=== PATIENT | female | born 1995 | race African-American/Black ===

== ENCOUNTER 2020-01-01 10:56 | Emergency (ER) | payer OTHER ==
[~2020-01-01] VITALS: Ht 160 cm; Wt 73.6 kg
[2020-01-01 11:15] VITALS: BP 128/79
[2020-01-01 11:45] LABS: BILIRUBIN,URINE SMALL (NEG); COLOR,URINE AMBER; NITRITE,URINE NEGATIVE (NEG); PH,URINE 6.5 (<5.0-8.0); PROTEIN,URINE 30 mg/dL (NEG-TRACE)
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
[2020-01-01 11:54] LABS: CLARITY,URINE HAZY
[2020-01-01 12:01] LABS: BACTERIA,URINE FEW /HPF (0-FEW); SQUAMOUS EPITHELIAL CELL,UR MANY /LPF
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
== END 2020-01-01 13:33 | disposition home or self-care (01) ==
LOC: ER 10:56
DX: O26.891 Other specified pregnancy related conditions, first trimester (principal); G89.11 Acute pain due to trauma; R51 Headache; V49.9XXA Car occupant (driver) (passenger) injured in unspecified traffic accident, initial encounter; Y93.89 Activity, other specified; Y92.413 State road as the place of occurrence of the external cause; Y99.8 Other external cause status; Z3A.11 11 weeks gestation of pregnancy
CPT/HCPCS: 76801; 81001; 81025; 87086; 99284